=== PATIENT | male | born 1975 | race Hispanic/Latino ===

== ENCOUNTER 2022-09-06 04:37 | Emergency (ER) | payer OTHER ==
[~2022-09-06] VITALS: Ht 154.9 cm; Wt 86.6 kg
[2022-09-06 04:39] VITALS: BP 152/108
== END 2022-09-06 05:25 | disposition left against medical advice (07) ==
LOC: EDH 04:37
DX: R51.9 Headache, unspecified (principal); Z53.21 Procedure and treatment not carried out due to patient leaving prior to being seen by health care provider